=== PATIENT | female | born 1955 | race Caucasian/White ===

== ENCOUNTER 2024-07-14 19:33 | Observation (INO) | payer OTHER ==
--- NOTE | 2024-07-14 19:52 | ED ---
Chest Pain HPI - General Chief Complaint: Chest Pain Stated Complaint: CP Time Seen by Provider: 07/14/24 19:51 Source: patient Mode of arrival: wheelchair Limitations: no limitations - History of Present Illness Initial Comments: 68-year-old female presenting with chief complaint of chest pain. Patient has history of dementia and diabetes. Due to patient's dementia, history directly from her is somewhat limited. Daughter reports that patient started complaining of chest pain tonight. Patient is having no difficulty breathing. Denies nausea or vomiting. No dizziness. No headache. No shoulder pain or jaw pain. No abdominal pain. No injuries. Does have family history of NH, repeatedly says "all of my brothers of heart attacks" - Related Data Home Medications Medication Instructions Recorded Confirmed Levothyroxine Sodium [Synthroid] 125 mcg PO DAILY 04/09/15 07/15/24 Ammonium Lactate Lotion 1 applic TOPICAL DAILY 07/15/24 07/15/24 [Lac-Hydrin 12% Lotion] Buprenorphine [Butrans 7.5 MCG/HR] 1 patch TRANSDERM WEEKLY 07/15/24 07/15/24 Calcium Carbonate/Vitamin D3 1 tab PO DAILY 07/15/24 07/15/24 [Calcium 500-Vit D3 400 Chew Tb] Donepezil [Aricept] 5 mg PO HS 07/15/24 07/15/24 Previous Rx's Medication Instructions Recorded Aspirin 81 mg PO DAILY #90 tab 07/15/24 Atorvastatin [Lipitor] 20 mg PO HS #90 tab 07/15/24 Allergies Allergy/AdvReac Type Severity Reaction Status Date / Time adhesive Allergy Unknown Verified 07/15/24 10:33 erythromycin base Allergy Unknown Verified 07/15/24 10:33 furosemide [From Lasix] Allergy Unknown Verified 07/15/24 10:33 tetracycline Allergy Unknown Verified 07/15/24 10:33 Review of Systems ROS Statement: Those systems with pertinent positive or pertinent negative responses have been documented in the HPI. ROS Other: All systems not noted in ROS Statement are negative. Past Medical History Past Medical History: Diabetes Mellitus, Thyroid Disorder Additional Past Medical History / Comment(s): knee pain History of Any Multi-Drug Resistant Organisms: None Reported Past Surgical History: Cholecystectomy Past Psychological History: Depression Smoking Status: Never smoker Past Alcohol Use History: None Reported Past Drug Use History: None Reported General Exam - General Exam Comments Initial Comments: Visual Physical Exam Vital signs reviewed General: Well-appearing, nontoxic, no acute distress. Head: Normocephalic, atraumatic Eyes: PERRLA, EOMI ENT: Airway patent Chest: Nonlabored breathing Skin: No visual rash, normal skin tone Neuro: History of dementia, patient is at baseline mental status Musculoskeletal: No gross abnormalities Limitations: altered mental status (Dementia) General appearance: alert, in no apparent distress Head exam: Present: atraumatic, normocephalic, normal inspection Eye exam: Present: normal appearance, EOMI Neck exam: Present: normal inspection. Absent: meningismus Respiratory exam: Present: normal lung sounds bilaterally. Absent: respiratory distress, wheezes, rales, rhonchi, stridor Cardiovascular Exam: Present: regular rate, normal rhythm, normal heart sounds. Absent: systolic murmur, diastolic murmur, rubs, gallop, clicks Neurological exam: Present: alert, altered (Dementia, baseline mental status) Skin exam: Present: warm, dry, normal color Course Vital Signs 07/14/24 07/15/24 07/15/24 19:44 01:10 06:06 Temperature 97.9 F 97.5 F L 97.5 F L Pulse Rate 81 59 L 62 Respiratory 18 15 12 Rate Blood Pressure 144/67 135/80 124/54 O2 Sat by Pulse 100 98 98 Oximetry Chest Pain MDM - MDM I performed the quick note portion of this visit, electronically signed Juan Angulo PA-C Was pt. sent in by a medical professional or institution ([facility], AUDIO VISUAL AIDE, urgent care, hospital, or [facility]...) When possible be specific @ -No Did you speak to anyone other than the patient for history (EMS, parent, family, police, friend...)? What history was obtained from this source @ -Daughter and son Did you review nursing and triage notes (agree or disagree)? Why? @ -I reviewed and agree with nursing and triage notes Were old charts reviewed (outside hosp., previous admission, EMS record, old EKG, old radiological studies, urgent care reports/EKG's, [facility] records)? Report findings @ -No old charts were reviewed Differential Diagnosis (chest pain, altered mental status, abdominal pain women, abdominal pain men, vaginal bleeding, weakness, fever, dyspnea, syncope, headache, dizziness, GI bleed, back pain, seizure, CVA, palpatations, mental health, musculoskeletal)? @ -MDM Differential Chest Pain: Stable Angina, Unstable Angina, STEMI, NSTEMI Aortic Dissection, Pneumothorax, Musculoskeletal, Esophageal Spasm GERD, Cholecystitis, Pancreatitis, Zoster This is not meant to be an all-inclusive list. EKG interpreted by me (3pts min.). @ -KG shows sinus rhythm ventricular rate 75. AK interval 162. QRS 138. QT 413. QTc 442. X-rays interpreted by me (1pt min.). @ -Chest x-ray shows no acute process CT interpreted by me (1pt min.). @ -None done U/S interpreted by me (1pt. min.). @ -None done What testing was considered but not performed or refused? (CT, X-rays, U/S, labs)? Why? @ -None What meds were considered but not given or refused? Why? @ -None Did you discuss the management of the patient with other professionals (professionals i.e. , PA, AUDIO VISUAL AIDE, lab, RT, psych nurse, criminal justice social worker, immigration lawyer, teacher, landcare officer, case hardener)? Give summary @ -Spoke with Dr. Phan who accepts admission Was smoking cessation discussed for >3mins.? @ -No Was critical care preformed (if so, how long)? @ -No Were there social determinants of health that impacted care today? How? (Homelessness, low income, unemployed, alcoholism, drug addiction, tra nsportation, low edu. Level, literacy, decrease access to med. care, care home, rehab)? @ -No Was there de-escalation of care discussed even if they declined (Discuss DNR or withdrawal of care, Hospice)? DNR status @ -No What co-morbidities impacted this encounter? (DM, HTN, Smoking, COPD, CAD, Cancer, CVA, ARF, Chemo, Hep., AIDS, mental health diagnosis, sleep apnea, morbid obesity)? @ -None Was patient admitted / discharged? Hospital course, mention meds given and route, prescriptions, significant lab abnormalities, going to OR and other pertinent info. @ -68-year-old female presenting with chief complaint of chest pain. History and physical examination are conducted. Troponin is negative. Chest x-ray shows no acute process. No acute ischemic findings on EKG. Given the patient's risk factors of diabetes, family history, age over 65, patient will be admitted for observation with repeat troponins and evaluation by cardiology in the morning. Patient does have dementia so she is a bit confused by this plan, however her guardian, her daughter, is agreeable with this plan. I discussed this case with my attending Dr. Jacques Undiagnosed new problem with uncertain prognosis? @ -No Drug Therapy requiring intensive monitoring for toxicity (Heparin, Nitro, Insulin, Cardizem)? @ -No Were any procedures done? @ -No Diagnosis/symptom? @ -Chest pain Acute, or Chronic, or Acute on Chronic? @ -Acute Uncomplicated (without systemic symptoms) or Complicated (systemic symptoms)? @ -Complicated Side effects of treatment? @ -No Exacerbation, Progression, or Severe Exacerbation? @ -No Poses a threat to life or bodily function? How? (Chest pain, [place], NH, pneumonia, PE, COPD, DKA, ARF, appy, cholecystitis, CVA, Diverticulitis, Homicidal, Suicidal, threat to staff... and all critical care pts) @ -Yes Disposition Clinical Impression: Chest pain Disposition: ADMITTED IP TO THIS HOSP Condition: Fair Time of Disposition: 01:17
[2024-07-14 20:20] LABS: ALT 20 U/L (4-34); African American GFR (CKD) >90 (>60 ml/min/1.73 sqM); Albumin 4.1 g/dL (3.5-5.0); Anion Gap 12 mmol/L; Blood Urea Nitrogen 17 mg/dL (7-17); Calcium 8.8 mg/dL (8.4-10.2); Carbon Dioxide 23 mmol/L (22-30); Chloride 102 mmol/L (98-107); Glucose 53 mg/dL (74-99); Lipase 87 U/L (23-300); Non-African American GFR(CKD) 82 (>60 ml/min/1.73 sqM); Sodium 137 mmol/L (137-145); Total Bilirubin 0.4 mg/dL (0.2-1.3); Total Protein 7.5 g/dL (6.3-8.2)
[2024-07-14 20:24] LABS: INR 0.9 (<1.2); Partial Thromboplastin Time 21.8 sec (22.0-30.0); Prothrombin Time 9.8 sec (10.0-12.5)
[2024-07-14 20:27] LABS: AST 29 U/L (14-36); Potassium 4.1 mmol/L (3.5-5.1)
[2024-07-14 20:28] LABS: Alkaline Phosphatase 117 U/L (38-126); Magnesium 2.1 mg/dL (1.6-2.3)
[2024-07-14 20:34] LABS: Basophils % (A) 0 %; Eosinophils # (A) 0.3 k/uL (0-0.7); Eosinophils % (A) 4 %; HCT 40.7 % (34.0-46.0); HGB 12.6 gm/dL (11.4-16.0); Hypochromasia Slight; Lymphocytes # (A) 2.3 k/uL (1.0-4.8); Lymphocytes % (A) 25 %; MCH 27.4 pg (25.0-35.0); MCHC 31.1 g/dL (31.0-37.0); MCV 88.1 fL (80.0-100.0); Mean Platelet Volume 8.4; Monocytes # (A) 0.6 k/uL (0-1.0); Monocytes % (A) 7 %; Neutrophils # (A) 5.5 k/uL (1.3-7.7); Neutrophils % (A) 62 %; Platelet Count 310 k/uL (150-450); RBC 4.61 m/uL (3.80-5.40); RDW 13.6 % (11.5-15.5); WBC 8.9 k/uL (3.8-10.6)
[2024-07-14 20:52] LABS: Influenza A Not Detected (Not Detectd); Influenza B Not Detected (Not Detectd); RSV Not Detected (Not Detectd)
--- NOTE | 2024-07-14 21:02 | XR ---
EXAMINATION TYPE: XR chest 2V DATE OF EXAM: 07/14/2024 8:58 PM COMPARISON: None. CLINICAL INDICATION: Female, 68 years old with history of Chest Pain, TECHNIQUE: Frontal and lateral views of the chest are obtained. FINDINGS: There is no focal air space opacity, pleural effusion, or pneumothorax seen. The cardiac silhouette size is upper limits of normal. The osseous structures are intact. IMPRESSION: No acute process. [facility], , 07/14/2024 9:00 PM
[2024-07-15 01:10] LABS: Glucose,Whole Blood 99 mg/dL (70-110)
[2024-07-15] MEDS ORDERED: NALOXONE 0.4 MG/ML 1 ML VIAL IV PRN (01:14)
[2024-07-15 01:25] LABS: Appearance,Urine Clear (Clear); Bacteria,Urine Few /hpf; Bilirubin,Urine Negative (Negative); Blood,Urine Negative (Negative); Color,Urine Colorless; Glucose,Urine (UA) Negative (Negative); Ketones,Urine Negative (Negative); Leukocyte Esterase,Urine Small (Negative); Mucus,Urine Rare /hpf; Nitrite,Urine Negative (Negative); PH, Urine 5.5 (5.0-8.0); Protein,Urine Negative (Negative); RBC,Urine <1 /hpf (0-5); Specific Gravity,Urine 1.009 (1.001-1.035); Urobilinogen,Urine <2.0 mg/dL (<2.0); WBC,Urine 7 /hpf (0-5)
[2024-07-15] MEDS ORDERED: DEXTROSE 50% SYRINGE 50 ML IVP PRN ×2 (01:31)
[2024-07-15] MEDS ORDERED: ACETAMINOPHEN TAB 325 MG TAB PO PRN (01:35)
[2024-07-15] MEDS: ASPIRIN 325 MG TAB PO STA (02:47)
[2024-07-15] MEDS: ATORVASTATIN 40 MG TAB PO STA (02:47)
[2024-07-15] MEDS: ENOXAPARIN 40 MG/0.4 ML SYRINGE SQ STA (02:47)
--- NOTE | 2024-07-15 03:06 | P.HPIM ---
History of Present Illness H&P Date: 07/15/24 History of present illness; Patient is 68-year-old female with diabetes mellitus type 2, dementia, d epression, hypothyroidism, chronic knee pain who presents with chest pain. Patient is poor historian due to underlying dementia, history obtained from daughter. She states that at 7 PM tonight patient came in her room and started complaining of chest pain and stated she was scared of dying. She also says that she had associated left arm pain. Family history significant for cardiac disease in siblings. Patient currently denying all symptoms including chest pain, pleuritic pain and recent immobilization. She is also denying fever, chills, palpitations, diaphoresis, dyspnea, cough, abdominal pain, nausea, vomiting, constipation, diarrhea, weakness, myalgia, dizziness, headache, and dysuria. Spoke with the ER physician, patient admission was accepted by internal medicine service for treatment. REVIEW OF SYSTEMS: Pertinent positives and negatives noted in HPI. PHYSICAL EXAMINATION: Vitals reviewed GENERAL: Resting comfortably in bed. Obese. EYES: PERRL, no scleral injection or icterus. No vision loss HENT: Normocephalic, atraumatic, hearing acuity intact, moist mucous membranes, dentures out NECK: No tracheal deviation, full range of motion. CARDIOVASCULAR: S1 and S2 present. No murmurs, rubs, or gallops. PULMONARY: Chest is clear to auscultation, no wheezing, rhonchi, or crackles. ABDOMEN: Soft, nontender, nondistended. No palpable organomegaly. MUSCULOSKELETAL: No apparent joint swelling and deformities. EXTREMITIES: No apparent cyanosis, clubbing. No pedal edema. NEUROLOGICAL: Alert, oriented to self and partially to place, believes she is in a different hospital and thinks it is 2018. Gross neurological examination with no apparent focal deficits. SKIN: No apparent rashes. ER FINDINGS: Labs significant for WBC 8.9, hemoglobin 12.6, PT 9.8, AP TT 21.8, sodium 137, potassium 4.1, BUN 17, creatinine 0.76, glucose 53 => 99 troponin <0.012, viral respiratory panel negative, UA with small LE EKG independently interpreted showed sinus rhythm heart rate of 75 with left axis deviation, no ST segment elevation or depression seen, no T-wave inversions seen. Chest x-ray done independently interpreted showed no acute cardiopulmonary process. CT head independently interpreted showed no acute intracranial process. Old lacunar infarct left basal ganglia. Mild burden of chronic small vessel ischemic disease. Assessment and Plan: In summary, patient is 68-year-old female with diabetes mellitus type 2, depression, hypothyroidism, chronic pain who presents with chest pain. #Atypical chest pain -trend troponins, initial <0.012 -Ordered TSH with reflex T4, HbA1c, Lipid panel -given aspirin 325 mg, start 81mg qd -given atorvastatin 40 mg continue cardiac monitoring -Cardiology consulted -Echo ordered Chronic Medical Conditions #Diabetes mellitus, type 2 Holding oral medications Begin Accu-Cheks and low-dose sliding scale, monitor for hypoglycemia HbA1c pending #Hypothyroidism - Resume home Synthroid #Anxiety/Depression- Resume home Wellbutrin #Chronic painresume home Cymbalta #Dementia DVT ppx: Subq Lovenox 40 meq daily Code status: Full code F: P.o. E: Replete as needed N: Heart healthy diet A: Ambulatory Anticipated discharge place: Home Anticipated discharge time: Today Dictation was produced using [email or web address] dictation software. Please excuse any grammatical, word or spelling errors. Past Medical History Past Medical History: Diabetes Mellitus, Thyroid Disorder Additional Past Medical History / Comment(s): knee pain History of Any Multi-Drug Resistant Organisms: None Reported Past Surgical History: Cholecystectomy Past Psychological History: Depression Smoking Status: Never smoker Past Alcohol Use History: None Reported Past Drug Use History: None Reported Medications and Allergies Home Medications Medication Instructions Recorded Confirmed Type HYDROcodone/APAP 10-325MG [[place] 1 tab PO Q6H PRN 04/09/15 08/29/21 History 10-325] Levothyroxine Sodium [Synthroid] 125 mcg PO DAILY 04/09/15 08/29/21 History metFORMIN HCL [Glucophage] 500 mg PO BID 04/09/15 08/29/21 History DULoxetine HCL [Cymbalta] 20 mg PO DAILY 03/21/21 08/29/21 History DULoxetine HCL [Cymbalta] 1 tab PO DAILY 08/29/21 08/29/21 History Ergocalciferol [Vitamin D2 (1250 1 tab PO QMONTHLY 08/29/21 08/29/21 History Mcg = [id number] Iu)] buPROPion [Wellbutrin] 1 tab HS 08/29/21 08/29/21 History Allergies Allergy/AdvReac Type Severity Reaction Status Date / Time erythromycin base Allergy Unknown Verified 07/14/24 19:46 tetracycline Allergy Unknown Verified 07/14/24 19:46 Physical Exam Vitals: Vital Signs Temp Pulse Resp BP Pulse Ox 07/14/24 19:44 97.9 F 81 18 144/67 100 Intake and Output 07/14/24 07/14/24 07/15/24 14:59 22:59 06:59 Other: Weight 95.254 kg Results CBC & Chem 7: 07/14/24 20:00 07/14/24 20:00 Labs: Abnormal Lab Results - Last 24 Hours (Table) 07/14/24 07/14/24 Range/Units 20:00 20:00 PT 9.8 L (10.0-12.5) sec APTT 21.8 L (22.0-30.0) sec Glucose 53 L (74-99) mg/dL
[2024-07-15 06:01] LABS: Glucose,Whole Blood 92 mg/dL (70-110)
[2024-07-15] MEDS: INSULIN LISPRO (HumaLOG) 100 UNIT/ML 10 mL VL SQ SCH (07:21)
[2024-07-15] MEDS: LEVOTHYROXINE 125 MCG TAB PO SCH (07:25)
[2024-07-15] MEDS: DULoxetine HCL 20 MG CAPSULE.DR PO SCH (09:02)
[2024-07-15] MEDS: ASPIRIN 81 MG PO SCH (09:02)
[2024-07-15 10:31] LABS: Basophils # (A) 0.03 X 10*3/uL (0.00-0.10); Basophils % (A) 0.5 %; Eosinophils # (A) 0.28 X 10*3/uL (0.04-0.35); Eosinophils % (A) 4.4 %; HCT 35.9 % (37.2-46.3); HGB 11.3 g/dL (12.0-15.0); Lymphocytes # (A) 1.43 X 10*3/uL (0.90-5.00); Lymphocytes % (A) 22.5 %; MCH 27.8 pg (27.0-32.0); MCHC 31.5 g/dL (32.0-37.0); MCV 88.4 FL (80.0-97.0); Mean Platelet Volume 11.8 FL (9.5-12.2); Monocytes # (A) 0.69 X 10*3/uL (0.20-1.00); Monocytes % (A) 10.9 %; NRBC Per 100 WBC 0 X 10*3/uL (0.00-0.01); Neutrophils % (A) 61.4 %; Platelet Count 294 X 10*3/uL (140-440); RBC 4.06 X 10*6/uL (4.10-5.20); RDW 13.2 % (11.5-14.5); WBC 6.35 X 10*3/uL (4.50-10.00)
--- NOTE | 2024-07-15 10:51 | P.CRDCN ---
History of Present Illness History of present illness: HISTORY OF PRESENT ILLNESS: This is a 68-year-old female with a past medical history significant for hypertension, hyperlipidemia, diabetes, and dementia. Patient follows in the office with Dr. Mcdonald but has not been seen since August 2021. We have been asked to see the patient in consultation for chest pain. Patient examined at the bedside in the emergency room. The patient has a history of dementia and is a poor historian. She is confused at the time of examination. She is unsure of why she was brought to the hospital. 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 The patient denies having any chest pain or pressure. She denies any shortness of breath. Denies any dizziness or lightheadedness. She states she is feeling fine this morning and is asking repeatedly to go home. Apparently the patient mentioned to her family member yesterday that she was having chest pain so they brought her to the hospital for further evaluation. DIAGNOSTICS: - EKG reveals sinus mechanism with IVCD. No signs of acute ischemia. - Chest xray negative for acute process - Laboratory data: WBC 6.35. Hemoglobin 11.3. Platelet count 294. Sodium 137. Potassium 4.1. BUN 17. Creatinine 0.76. Troponin negative x 3. - Current home cardiac medications include none - Most recent echocardiogram obtained in 2020 revealed normal EF, mild MR -Patient underwent dobutamine stress test in August 2021 which revealed normal stress echocardiogram with no evidence of stress-induced ischemia REVIEW OF SYSTEMS: At the time of my exam: CONSTITUTIONAL: Denies fever or chills. HEENT: Denies blurred vision, vision changes, or eye pain. Denies hemoptysis CARDIOVASCULAR: Denies chest pain. Denies orthopnea. Denies PND. Denies palpitations RESPIRATORY: Denies shortness of breath. GASTROINTESTINAL: Denies abdominal pain. Denies nausea or vomiting. HEMATOLOGIC: Denies bleeding disorders. GENITOURINARY: Denies any blood in urine. SKIN: Denies pruitis. Denies rash. PHYSICAL EXAM: VITAL SIGNS: Reviewed. GENERAL: Well-developed in no acute distress. HEENT: Head is normocephalic. Pupils are equal, round. Sclerae anicteric. Mucous membranes of the mouth are moist. Neck supple. No JVD or thyromegaly LUNGS: Respirations even and unlabored. Lungs essentially clear to auscultation bilaterally. HEART: Regular rate and rhythm. S1 and S2 heard. ABDOMEN: Soft. Nondistended. Nontender. EXTREMITIES: Normal range of motion. No clubbing or cyanosis. Peripheral pulses intact. No lower extremity edema NEUROLOGIC: Awake and alert. Oriented x 1. ASSESSMENT: Chest pain, atypical, troponin negative x 3 History of hypertension not requiring antihypertensive medications at this time Hyperlipidemia, not on statin therapy outpatient Diabetes Dementia PLAN: An acute coronary event has been ruled out Obtain 2D echo to assess cardiac structure and function Decrease aspirin to 81 mg daily Add atorvastatin 20 mg at night No plans for inpatient stress testing. Case discussed with patient's daughter over the phone who is agreeable. Patient may be discharged home today from a cardiac standpoint Patient to follow-up postdischarge in the office with Dr. Mcdonald Nurse practitioner note has been reviewed by physician. Signing provider agrees with the documented findings, assessment, and plan of care documented by AQUA AMMONIA OPERATOR as a scribe. Past Medical History Past Medical History: Diabetes Mellitus, Thyroid Disorder Additional Past Medical History / Comment(s): knee pain History of Any Multi-Drug Resistant Organisms: None Reported Past Surgical History: Cholecystectomy Past Psychological History: Depression Smoking Status: Never smoker Past Alcohol Use History: None Reported Past Drug Use History: None Reported Medications and Allergies Home Medications Medication Instructions Recorded Confirmed Type Levothyroxine Sodium [Synthroid] 125 mcg PO DAILY 04/09/15 07/15/24 History Ammonium Lactate Lotion 1 applic TOPICAL DAILY 07/15/24 07/15/24 History [Lac-Hydrin 12% Lotion] Buprenorphine [Butrans 7.5 MCG/HR] 1 patch TRANSDERM WEEKLY 07/15/24 07/15/24 History Calcium Carbonate/Vitamin D3 1 tab PO DAILY 07/15/24 07/15/24 History [Calcium 500-Vit D3 400 Chew Tb] Donepezil [Aricept] 5 mg PO HS 07/15/24 07/15/24 History Allergies Allergy/AdvReac Type Severity Reaction Status Date / Time adhesive Allergy Unknown Verified 07/15/24 10:33 erythromycin base Allergy Unknown Verified 07/15/24 10:33 furosemide [From Lasix] Allergy Unknown Verified 07/15/24 10:33 tetracycline Allergy Unknown Verified 07/15/24 10:33 Physical Exam Vitals: Vital Signs Temp Pulse Resp BP Pulse Ox 07/15/24 06:06 97.5 F L 62 12 124/54 98 07/15/24 01:10 97.5 F L 59 L 15 135/80 98 07/14/24 19:44 97.9 F 81 18 144/67 100 Intake and Output 07/14/24 07/15/24 07/15/24 22:59 06:59 14:59 Other: Weight 95.254 kg Results 07/15/24 05:53 07/14/24 20:00 Cardiac Enzymes 07/14/24 07/14/24 07/15/24 Range/Units 20:00 20:00 02:42 AST 29 (14-36) U/L Troponin I <0.012 <0.012 (0.000-0.034) ng/mL 07/15/24 Range/Units 05:53 AST (14-36) U/L Troponin I <0.012 (0.000-0.034) ng/mL Coagulation 07/14/24 Range/Units 20:00 PT 9.8 L (10.0-12.5) sec APTT 21.8 L (22.0-30.0) sec CBC 07/14/24 07/15/24 Range/Units 20:00 05:53 WBC 8.9 6.35 (3.8-10.6) k/uL RBC 4.61 4.06 L (3.80-5.40) m/uL Hgb 12.6 11.3 L (11.4-16.0) gm/dL Hct 40.7 35.9 L (34.0-46.0) % Plt Count 310 294 (150-450) k/uL Comprehensive Metabolic Panel 07/14/24 Range/Units 20:00 Sodium 137 (137-145) mmol/L Potassium 4.1 (3.5-5.1) mmol/L Chloride 102 (98-107) mmol/L Carbon Dioxide 23 (22-30) mmol/L BUN 17 (7-17) mg/dL Creatinine 0.76 (0.52-1.04) mg/dL Glucose 53 L (74-99) mg/dL Calcium 8.8 (8.4-10.2) mg/dL AST 29 (14-36) U/L ALT 20 (4-34) U/L Alkaline Phosphatase 117 (38-126) U/L Total Protein 7.5 (6.3-8.2) g/dL Albumin 4.1 (3.5-5.0) g/dL Current Medications Generic Name Dose Route Start Last Admin Trade Name Celioq PRN Reason Stop Dose Admin Acetaminophen 650 mg 07/15/24 01:35 Acetaminophen Tab 325 Mg Tab PO ONCE PRN Pain Aspirin 81 mg 07/15/24 09:00 07/15/24 09:02 Aspirin 81 Mg PO 81 mg DAILY TOÑO Administration Bupropion HCl 75 mg 07/15/24 21:00 Bupropion 75 Mg Tab PO HS TOÑO Dextrose/Water 25 ml 07/15/24 01:31 Dextrose 50% Syringe 50 Ml IVP PER PROTOCOL PRN Hypoglycemia Protocol Dextrose/Water 50 ml 07/15/24 01:31 Dextrose 50% Syringe 50 Ml IVP PER PROTOCOL PRN Hypoglycemia Protocol Duloxetine HCl 20 mg 07/15/24 09:00 07/15/24 09:02 Duloxetine Hcl 20 Mg Capsule. PO 20 mg DAILY [facility] Administration Insulin Human Lispro 0 unit 07/15/24 07:30 07/15/24 07:21 Insulin Lispro (Humalog) 100 Unit/Ml 10 Ml Vl SQ Not Given ACHS [facility] Protocol Levothyroxine Sodium 125 mcg 07/15/24 06:30 07/15/24 07:25 Levothyroxine 125 Mcg Tab PO 125 mcg DAILY@0630 TOÑO Administration Naloxone HCl 0.2 mg 07/15/24 01:14 Naloxone 0.4 Mg/Ml 1 Ml Vial IV Q2M PRN Opioid Reversal Intake and Output 07/14/24 07/15/24 07/15/24 22:59 06:59 14:59 Other: Weight 95.254 kg 07/15/24 05:53 07/14/24 20:00
[2024-07-15 10:53] LABS: BUN/Creat Ratio 18.71 Ratio (12.00-20.00); Blood Urea Nitrogen 13.1 mg/dL (9.0-27.0); Calcium 8.6 mg/dL (8.7-10.3); Carbon Dioxide 27.1 mmol/L (21.6-31.8); Chloride 105 mmol/L (96-109); Glucose 92 mg/dL (70-110); Potassium 4.2 mmol/L (3.5-5.5); Sodium 142 mmol/L (135-145)
[2024-07-15 12:48] VITALS: BP 146/68; PULSE 70; RESP 19; TEMP 98.3
--- NOTE | 2024-07-15 14:18 | P.DS ---
Providers Date of admission: 07/15/24 01:16 Attending physician: Amos Phan MD Primary care physician: Ham Mccauley MD Hospital Course: Discharge Diagnosis: Atypical chest pain, ACS ruled out Hypertension not on medications Hyperlipidemia Diabetes Dementia Hospital Course: Patient is 68-year-old female with diabetes mellitus type 2, dementia, depression, hypothyroidism, chronic knee pain who presents with chest pain. Patient is poor historian due to underlying dementia, history obtained from daughter. She states that at 7 PM tonight patient came in her room and started complaining of chest pain and stated she was scared of dying. She also says that she had associated left arm pain. Family history significant for cardiac disease in siblings. Patient currently denying all symptoms including chest pain, pleuritic pain and recent immobilization. ER FINDINGS: Labs significant for WBC 8.9, hemoglobin 12.6, PT 9.8, AP TT 21.8, sodium 137, potassium 4.1, BUN 17, creatinine 0.76, glucose 53 => 99 troponin <0.012, viral respiratory panel negative, UA with small LE EKG independently interpreted showed sinus rhythm heart rate of 75 with left axis deviation, no ST segment elevation or depression seen, no T-wave inversions seen. Chest x-ray done independently interpreted showed no acute cardiopulmonary process. CT head independently interpreted showed no acute intracranial process. Old lacunar infarct left basal ganglia. Mild burden of chronic small vessel ischemic disease. Cardiology evaluated patient, can follow-up as outpatient with Dr. Mcdonald, aspirin 81 mg, atorvastatin 20 mg nightly added Patient seen and examined at bedside Vital signs reviewed and stable. General: [nontoxic], [no distress], [appears at stated age] Derm: [warm], [dry] Head: [atraumatic], [normocephalic], [symmetric] Eyes: [EOMI], [no lid lag], [anicteric sclera] Mouth: [no lip lesion], [mucus membranes moist] Cardiovascular: [S1S2 reg], [no murmur] Lungs: [CTA bilateral], [no rhonchi, no rales] , [no accessory muscle use] Abdominal: [soft], [ nontender to palpation], [no guarding], [no appreciable organomegaly] Ext: [no gross muscle atrophy], [no edema], [no contractures] Neuro: [ CN II-XI grossly intact], [no focal neuro deficits] Psych: [Oriented to self, forgetful A total of 40 minutes of time were spent preparing this complex discharge summary. Patient was discharged on 07/15. Patient Condition at Discharge: Fair Plan - Discharge Summary New Discharge Prescriptions: New Aspirin 81 mg PO DAILY #90 tab Atorvastatin [Lipitor] 20 mg PO HS #90 tab Continue Levothyroxine Sodium [Synthroid] 125 mcg PO DAILY Donepezil [Aricept] 5 mg PO HS Calcium Carbonate/Vitamin D3 [Calcium 500-Vit D3 400 Chew Tb] 1 tab PO DAILY Buprenorphine [Butrans 7.5 MCG/HR] 1 patch TRANSDERM WEEKLY Ammonium Lactate Lotion [Lac-Hydrin 12% Lotion] 1 applic TOPICAL DAILY Discharge Medication List Levothyroxine Sodium [Synthroid] 125 mcg PO DAILY 04/09/15 [History] Ammonium Lactate Lotion [Lac-Hydrin 12% Lotion] 1 applic TOPICAL DAILY 07/15/24 [History] Aspirin 81 mg PO DAILY #90 tab 07/15/24 [Rx] Atorvastatin [Lipitor] 20 mg PO HS #90 tab 07/15/24 [Rx] Buprenorphine [Butrans 7.5 MCG/HR] 1 patch TRANSDERM WEEKLY 07/15/24 [History] Calcium Carbonate/Vitamin D3 [Calcium 500-Vit D3 400 Chew Tb] 1 tab PO DAILY 07/15/24 [History] Donepezil [Aricept] 5 mg PO HS 07/15/24 [History] Follow up Appointment(s)/Referral(s): Ham Mccauley MD [Primary Care Provider] - 1-2 days Edgar Sorensen DO [STAFF PHYSICIAN] - 1 Week Patient Instructions/Handouts: Chest Pain (DC) Activity/Diet/Wound Care/Special Instructions: 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 Discharge Disposition: HOME SELF-CARE
[2024-07-15] MEDS ORDERED: ATORVASTATIN 20 MG TAB PO SCH (21:00)
[2024-07-15] MEDS ORDERED: buPROPion 75 MG TAB PO SCH (21:00)
== END 2024-07-15 13:41 | disposition home or self-care (01) ==
LOC: EC 19:33 → 6NMEDSUR 07-15 01:16
PROVIDERS: ADMIT Internal Medicine; ATTEND Internal Medicine
DX: R07.89 Other chest pain (principal); E11.9 Type 2 diabetes mellitus without complications; E03.9 Hypothyroidism, unspecified; I10 Essential (primary) hypertension; E78.5 Hyperlipidemia, unspecified; M79.602 Pain in left arm; F03.93 Unspecified dementia, unspecified severity, with mood disturbance; F32.A Depression, unspecified; F03.94 Unspecified dementia, unspecified severity, with anxiety; G89.29 Other chronic pain; M25.569 Pain in unspecified knee; Z79.890 Hormone replacement therapy; Z79.84 Long term (current) use of oral hypoglycemic drugs; Z79.899 Other long term (current) drug therapy; Z88.1 Allergy status to other antibiotic agents; Z88.8 Allergy status to other drugs, medicaments and biological substances; Z91.048 Other nonmedicinal substance allergy status; Z86.73 Personal history of transient ischemic attack (TIA), and cerebral infarction without residual deficits; Z82.49 Family history of ischemic heart disease and other diseases of the circulatory system
CPT/HCPCS: 96372; 99285; 36415; 93005; 84439; 80053; 80048; 84443; 83690; 83735; 84484 ×2; 85025 ×2; 85610; 85730; 81001; 83036; 87636; 71046; G0378; J1650